=== PATIENT | female | born 1975 | race Hispanic/Latino ===

== ENCOUNTER 2025-02-02 09:15 | Emergency (ER) | payer SELFPAY ==
[2025-02-02] MEDS ORDERED: Famotidine/PF 20 mg/2ml Vial ONE (10:16)
[2025-02-02] MEDS ORDERED: Metoclopramide HCl 10 MG (2 mL) VIAL ONE (10:16)
[2025-02-02] MEDS ORDERED: Ondansetron PF 4 MG/2 ML Vial ONE (10:51)
[2025-02-02] MEDS ORDERED: Lidocaine 1% PF 5 ML VIAL ONE (10:51)
[2025-02-02] MEDS ORDERED: PROPOFOL 20 ML ONE (10:51)
[2025-02-02] MEDS ORDERED: SUGAMMADEX SODIUM 200 MG/2 ML VIAL ONE (10:52)
[2025-02-02] MEDS ORDERED: Bupivacaine/Epinephrine 0.25% 30 ML VIAL ONE (10:52)
[2025-02-02] MEDS ORDERED: Lidocaine 1% w/Epinephrine 1:200K 30 ML VIAL ONE (10:52)
[2025-02-02] MEDS ORDERED: Rocuronium Bromide 10 MG/ML (10ML VIAL) ONE (10:52)
[2025-02-02] MEDS ORDERED: Acetaminophen 500 MG TAB ONE (13:24)
== END 2025-02-02 11:20 | disposition admitted as inpatient to this hospital (09) ==
LOC: CSHERS 09:15
PROC: 0UQG0ZZ Repair Vagina, Open Approach (ICD-10-PCS; principal; 2025-02-02)
DX: S31.41XA Laceration without foreign body of vagina and vulva, initial encounter (principal); Z94.0 Kidney transplant status; Z90.710 Acquired absence of both cervix and uterus; Z88.2 Allergy status to sulfonamides; X58.XXXA Exposure to other specified factors, initial encounter
CPT/HCPCS: 96365; 96375; J1100; J1308; J2405; J2704; J2765; J3010